=== PATIENT | female | born 1975 | race Caucasian/White ===

== ENCOUNTER 2016-08-18 11:41 | Emergency (ER) | payer OTHER ==
[~2016-08-18] VITALS: Ht 160 cm; Wt 90.9 kg
[~2016-08-18 11:41] MED LIST: GABA-502 PO; HYDR-3797 PO; HYDROMORPHONE HCL PO; MORP-32 PO; NAPR500T5 PO; ROB500 PO
[2016-08-18 11:44] VITALS: BP 139/89; PULSE 104; RESP 16; O2SAT 99
--- NOTE | 2016-08-18 12:43 | DRSVH ---
PROCEDURE: X-RAY PELVIS W/LAT HIP (RT) ([id number]) INDICATIONS: pain/ post surgical TECHNIQUE: AP pelvis with lateral view(s) of the right hip(s). COMPARISON: [facility], CR, XR HIP 2VW RT, 05/05/2016, 20:31. [facility], CR , XR FEMUR 2VW RT, 08/18/2016, 12:05. [facility], CR, XR PELVIS W LATERAL HIP RT, 02/15/20 16, 19:51. FINDINGS: Bones: Postsurgical changes compatible with ORIF of right femoral neck fracture are stable in appeara nce compared to prior examination. Soft tissues: The visualized bowel gas pattern is normal. No suspicious soft tissue calcifications. Multiple surgical clips project over the right lower quadrant loculated prior appendectomy. IMPRESSION: Status post ORIF of right femoral neck fracture. No acute fracture identified. Dictated by: Lissy Schilling MD, PhD on 08/18/2016 at 12:41 Approved by: Lissy Schilling MD, PhD on 08/18/2016 at 12:41
--- NOTE | 2016-08-18 12:48 | DRSVH ---
PROCEDURE: X-RAY RIGHT FEMUR, TWO VIEWS ([id number]) INDICATIONS: pain/ post surgical TECHNIQUE: 2 views of the femur were acquired. COMPARISON: [facility], CR, XR HIP 2VW RT, 05/05/2016, 20:31. FINDINGS: Bones: No acute fracture identified. Postoperative changes compatible with ORIF of right femoral neck fracture are noted. The most inferior orthopedic screw placed for reduction of right femoral neck fr acture has backed out and now projects approximately 2.1 cm lateral to the lateral margin of the prox imal right femur. Tricompartmental right knee osteoarthritic degenerative changes are noted. IMPRESSION: Status post ORIF of right femoral neck fracture. Most inferior of 3 orthopedic screws maribel mark for reduction of the right femur fracture has backed out and projects approximately 2.1 cm latera l to the lateral margin of the right femur. Dictated by: Lissy Schilling MD, PhD on 08/18/2016 at 12:47 Approved by: Lissy Schilling MD, PhD on 08/18/2016 at 12:47
[2016-08-18 12:57] LABS: BASOPHILS % (AUTO) 1.8 % (0-3); EOSINOPHILS % (AUTO) 6.5 % (0-5); MONOCYTES % (AUTO) 9.8 % (4-12); Mean Corpuscular Hemoglobin 30.7 pg (27.0-35.0); Mean Corpuscular Volume 92.1 fL (81-100); NEUTROPHILS % (AUTO) 39.5 % (40-74); Platelet Count 210 bil/L (150-400)
--- NOTE | 2016-08-18 15:16 | ED.REPORT ---
HPI-Extremity Problem Lower Date of Service Aug 18, 2016 ED Provider: Jonny Dhillon MD Pt is a 41 year old female post right hip surgery (04/17/16) complaining of right sided hip pain. She reports that in the last 4 days she's had increasing swelling and pain in her right hip radiating down her thigh. She also describes a sharp pain in her buttock. Associated symptoms include feeling flushed and a subjective fever. The pt takes Percocet, gabapentin and naproxen for pain. She last had pain medications around 1100 today. Nursing Notes Stated Complaint: HIP THIGH PAIN SWELLING Chief Complaint: Extremity Trauma Nursing Notes Reviewed: Yes Allergies: Coded Allergies: No Known Allergies (Unverified , 05/05/16) Scheduled ([hydromorphone hcl]) 25 MG PO BID Gabapentin (Gabapentin) 300 Mg Capsule 600 MG PO TID Morphine Sulfate ER (Morphine Sulfate ER) 15 Mg Tablet 15 MG PO Q12H Scheduled PRN Hydroxyzine Pamoate (HydrOXYzine Pamoate) 25 Mg Capsule 25 MG PO BID PRN PRN For Insomnia Methocarbamol (Methocarbamol) 500 Mg Tablet 750 MG PO Q6 PRN PRN For Pain Naproxen (Naproxen) 500 Mg Tablet.dr 500 MG PO BID PRN PRN For Pain General Time Seen by MD: 15:14 Chief Complaint Hip injury right Hx Obtained From: Patient Arrived By: Walk-in Onset Occurred: 4 days ago Symptom Duration: Since onset Location: : Hip right Quality: Painful, Sharp Severity: Current: Moderate Severity: Maximum: Severe Associated with: Reports: Fever (Subjective) Exacerbated by: Twisting Recent Healthcare: No recent doctor visit, No recent hospitalization, Previous surgery Similar Sx Previous: Yes Past Medical History Past Medical History Notes: No regular PCP Past Medical History Migraines, otherwise healthy. chronic pain issues PCOS Anxiety Heart murmur Past Surgical History surgery for labrum hip tear on 01/09/16 femoral repair 04/17/16 Multiple abdominal surgeries D&C x3 Multiple cystectomies Ablation Right arthroscopy and right bursectomy Reports: Hysterectomy Family History Colon polyps Crohn's disease Smoking History Former Smoker Social History The patient recently moved to the area 1 year ago. 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 Ambulatory Status Independent Review of Systems Constitutional: Reports: Fever Musculoskeletal: Reports: Joint pain (Right hip), Joint swelling (Right hip) Complete sys rev & neg: except as marked. Respiratory: Denies: Shortness of breath, Wheezing GI: Denies: Vomiting Physical Exam Initial Vital Signs Vital Signs (First) Date Time Temp Pulse Resp B/P Pulse Ox O2 Delivery O2 Flow Rate FiO2 08/18/16 11:44 36.7 104 16 139/89 99 Room Air Initial VS: Reviewed General/Constitutional: Well-developed, Well-nourished Head / Eyes: Atraumatic Neck: Supple, Non-tender, Full range of motion Respiratory: No respiratory distress Abdomen / GI: No distention Upper Extremities: Vascular intact, Neuro intact, No swelling, No tenderness Skin: Warm, Dry, No cyanosis Neurologic: Alert, Oriented, Nonfocal Psychiatric: Mood/affect normal, Behavior normal, Normal thought content Lower Extremity / Pelvis / MS: Neurologic intact, Vascular intact Right hip incision site healing well. Scar looks normal, no erythema or warmth. Interpretation & Diagnostics Lab Results Interpretation Result Diagram: 08/18/16 1233 08/18/16 1233 Test 08/18/16 12:33 White Blood Count 8.7th/mm3 (3.8-10.1) Red Blood Count 4.53mil/mm3 (3.90-5.20) Hemoglobin 13.9g/dL (12.0-15.6) Hematocrit 41.7% (35.0-46.0) Mean Corpuscular Volume 92.1fL (81-100) Mean Corpuscular Hemoglobin 30.7pg (27.0-35.0) Mean Corpuscular Hemoglobin Concent 33.3% (32.0-37.0) Red Cell Distribution Width 14.5% (12.3-15.4) Platelet Count 210bil/L (150-400) Neutrophils (%) (Auto) 39.5% (40-74) Lymphocytes (%) (Auto) 42.2% (14-46) Monocytes (%) (Auto) 9.8% (4-12) Eosinophils (%) (Auto) 6.5% (0-5) Basophils (%) (Auto) 1.8% (0-3) Sodium Level 136mEq/L (134-144) Potassium Level 4.1mEq/L (3.5-5.2) Chloride Level 98mEq/L (97-108) Carbon Dioxide Level 27mmol/L (18-29) Blood Urea Nitrogen 13mg/dL (6-24) Creatinine 0.87mg/dL (0.57-1.00) Estimat Glomerular Filtration Rate 103mL/min (>59) Glucose Level 102mg/dL (60-99) Calcium Level 9.4mg/dL (8.5-10.1) Total Bilirubin 0.3mg/dL (0.0-1.2) Aspartate Amino Transf (AST/SGOT) 15U/L (0-50) Alanine Aminotransferase (ALT/SGPT) 17U/L (0-32) Alkaline Phosphatase 70U/L (25-150) Total Protein 7.0g/dL (6.4-8.4) Albumin 4.1g/dL (3.4-5.0) Hold [place] Top Tube Received (Received) X-Ray Interpretation Xray Interpretation: XRAY PELVIS LAT RIGHT HIP: IMPRESSION: Status post ORIF of right femoral neck fracture. No acute fracture identified. Dictated by: Lissy Schilling MD, PhD on 08/18/2016 at 12:41 XRAY RIGHT FEMUR: IMPRESSION: Status post ORIF of right femoral neck fracture. Most inferior of 3 orthopedic screws placed for reduction of the right femur fracture has backed out and projects approximately 2.1 cm lateral to the lateral margin of the right femur. Dictated by: Lissy Schilling MD, PhD on 08/18/2016 at 12:47 Interpretation / Wet Read by: Interpret - Radiologist US Soft Tissue/Musculoskeletal US VEINOUS LEG RIGHT: IMPRESSION: No DVT down right leg. Dictated by: Rainer Julse M.D. on 08/18/2016 at 16:15 Exam Performed by: Radiologist Exam Interpreted by: Radiologist Indication: Swelling, Pain Re-Eval/Medical Decision Re-Evaluation/Progress #1: Time of Eval: 16:59 Patient Status: Condition improved Re-Evaluation/Progress Note: Performed physical exam and discussed x ray results. Re-Evaluation/Progress #2: Time of Eval: 17:17 Patient Status: Condition improved Re-Evaluation/Progress Note: Discussed plan for discharge. Pt understands and agrees. Counseled Regarding: Diagnosis, Lab results, Need for follow-up, When/why to return to ED Discharge & Departure Impression: Primary Impression: Right hip pain Disposition: Home Discharge Condition All VS Reviewed: Yes Condition: Improved Additional Instructions: Your ER visit today included interview, examination, X-rays, ultrasound, and labs. We have excluded infection or deep vein thrombosis as a cause for hip and thigh pain. On x-ray we note that the lowest screw from your recent surgery appears to have backed out slightly. Your orthopedist can review imaging on the electronic PACS system. Please contact him for follow up. Continue with use of crutches as needed, continue previous pain med management. Referrals: Corky Bernal MD Attestation Portions of this note were transcribed by Malia Lawrence. I, Dr. Dhillon personally performed the history, physical exam and medical decision-making; I reviewed and confirmed the accuracy of the information in the transcribed note. Signed by : Shiraz Tran, 08/18/16 and 7423. copies to: Corky Bernal MD, Donald L MD Aug 18, 2016 15:16 MALIA LAWRENCE Aug 18, 2016 15:28 Jonny Dhillon MD Aug 18, 2016 15:16 MALIA LAWRENCE Aug 18, 2016 15:28
[2016-08-18] MEDS ORDERED: oxyCODONE-Acetamin 5-325 mg Tablet PO ONE (15:25)
--- NOTE | 2016-08-18 16:16 | DRSVH ---
PROCEDURE: US VEINOUS LEG DUPLEX UNILATERAL, RIGHT INDICATIONS: R leg pain recent hip repair TECHNIQUE: Real-time imaging, as well as color and pulse Doppler interrogation, were performed of the lower extr emity deep veins from the inguinal ligament to the popliteal fossa. COMPARISON: [facility], US, US VENOUS LEG DPLX UNI RT, 06/10/2016, 14:40. FINDINGS: The deep veins are normally compressible, and free of intraluminal thrombus. Color and pu lse Doppler demonstrate normal phasic intraluminal flow. There is normal augmentation response to di stal compression maneuver. IMPRESSION: No DVT down right leg. Dictated by: Rainer Jules M.D. on 08/18/2016 at 16:15 Approved by: Rainer Jules M.D. on 08/18/2016 at 16:15
[2016-08-18] MEDS ORDERED: levETIRAcetam Inj 1,000 MG in IV Premix 1 EACH IV ONE (17:10)
[2016-08-18 17:30] VITALS: BP 149/86; PULSE 92; RESP 20; O2SAT 96
== END 2016-08-18 17:31 | disposition home or self-care (01) ==
LOC: SED 11:41
DX: M25.551 Pain in right hip (principal); Z98.890 Other specified postprocedural states; Z87.891 Personal history of nicotine dependence

== ENCOUNTER 2016-11-29 19:39 | Emergency (ER) | payer OTHER ==
[~2016-11-29] VITALS: Ht 160 cm; Wt 91.4 kg
[2016-11-29 19:41] VITALS: BP 138/78; PULSE 106; RESP 22; O2SAT 98
[2016-11-29 20:36] LABS: BASOPHILS % (AUTO) 1.3 % (0-3); EOSINOPHILS % (AUTO) 6.9 % (0-5); MONOCYTES % (AUTO) 12.9 % (4-12); Mean Corpuscular Hemoglobin 31.2 pg (27.0-35.0); Mean Corpuscular Volume 95.6 fL (81-100); NEUTROPHILS % (AUTO) 48.1 % (40-74); Platelet Count 298 bil/L (150-400)
[2016-11-29 20:58] LABS: Magnesium 2.1 mg/dL (1.6-2.6)
[2016-11-29 20:59] LABS: TROPONIN T < 0.010 ug/L (0.0-0.011)
--- NOTE | 2016-11-29 21:02 | DRSVH ---
PROCEDURE: X-RAY CHEST ONE VIEW, PORTABLE ([id number]) INDICATIONS: fever TECHNIQUE: One view of the chest was acquired. COMPARISON: None. FINDINGS: Surgical changes and devices: None. Lungs and pleura: No pleural effusions or pneumothorax. Lungs are clear. Mediastinum: Mediastinal contours appear normal. Heart size is normal. Bones and chest wall: No suspicious bony lesions. Overlying soft tissues appear unremarkable. IMPRESSION: No acute cardiopulmonary disease process. Dictated by: Lissy Schilling MD, PhD on 11/29/2016 at 21:00 Approved by: Lissy Schilling MD, PhD on 11/29/2016 at 21:00
[2016-11-29] MEDS ORDERED: 0.9% Sodium Chloride 1,000 ML IV ONE (21:15)
--- NOTE | 2016-11-29 21:20 | ED.REPORT ---
HPI-General Illness Date of Service Nov 29, 2016 ED Provider: Amisha Noel MD The patient is a 41 year old female who presents to the ED due to right knee swelling and pain following a complete right hip replacement four days ago. Dr. Darnell Hodgson was her surgeon. Post surgery, she now complains of increasing right knee and hip pain, extreme fatigue, flu-like symptoms, fever, nausea, chills, neck pain, swelling and bruising of the right knee. She had diarrhea prior to the surgery, which has since abated. She was hospitalized in the last year for c -diff. he denies cough, nausea, and dysuria. She also had emergency femur repair surgery 04/16/17. She has the help of a few in-home nurses to aid with her surgery recovery. Nursing Notes Stated Complaint: FEVER,NAUSEA,CHILLS,PAIN 4 DAYS POST ARTROPLASTY Chief Complaint: General Complaint Nursing Notes Reviewed: Yes Allergies: Coded Allergies: No Known Allergies (Unverified , 11/29/16) Scheduled Aspirin (Aspirin) 81 Mg Tablet 81 MG PO DAILY Morphine Sulfate ER (Morphine Sulfate ER) 15 Mg Tablet 15 MG PO BID Scheduled PRN Hydromorphone (Hydromorphone) 2 Mg Tablet 2-4 MG PO Q3H PRN PRN Pain Hydroxyzine Pamoate (HydrOXYzine Pamoate) 25 Mg Capsule 25 MG PO Q6 PRN PRN For Itching Ondansetron ODT (Zofran ODT) 4 Mg Tablet 4 MG PO Q4H PRN PRN For Nausea Polyethylene Glycol 3350 (Miralax) 17 Gm Powd.pack 17 GM PO DAILY PRN PRN For Constipation General Time Seen by MD: 20:34 Chief Complaint Other (right knee swelling and pain) Hx Obtained From: Patient Arrived By: Walk-in Past Medical History Past Medical History Notes: No regular PCP Past Medical History Migraines, otherwise healthy. chronic pain issues PCOS Anxiety Heart murmur Past Surgical History surgery for labrum hip tear on 01/09/16 femoral repair 04/17/16 Multiple abdominal surgeries D&C x3 Multiple cystectomies Ablation Right arthroscopy and right bursectomy Reports: Hysterectomy Family History Colon polyps Crohn's disease Smoking History Former Smoker Social History The patient recently moved to the area 1 year ago. 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 Ambulatory Status Independent Review of Systems Full Review of Systems Constitutional: Reports: Chills, Fatigue, Fever Respiratory: Denies: Non-productive cough GI: Reports: Diarrhea, Nausea Female: Denies: Dysuria Musculoskeletal: Reports: Extremity pain, Extremity swelling Complete sys rev & neg: except as marked. Physical Exam Vital Signs Vital Signs Date Time Temp Pulse Resp B/P Pulse Ox O2 Delivery O2 Flow Rate FiO2 11/29/16 22:43 37.2 99 16 124/63 96 Room Air 11/29/16 19:41 38.0 106 22 138/78 98 Room Air Initial VS: Reviewed, Vital signs abnormal Head / Eyes: Atraumatic, Normocephalic, PERRL ENT: Mucous membranes moist Respiratory: Breath sounds normal, Clear to auscultation, No respiratory distress Abdomen / GI: Soft, Non-tender, No guarding, No rebound, No distention Skin: Warm, Dry Neurologic: Alert, Oriented General/Constitutional: Awake, Alert, Cooperative Cardiovascular: Regular rhythm, Heart sounds NL Heart Rate / Rhythm: Positive: Tachycardia Right Knee: Positive: Swelling present... right leg is swollen and bruised incision clean, dry, and intact no surrounding erythema Interpretation & Diagnostics Lab Results Interpretation Result Diagram: 11/29/16201411/29/16 2015 Test 11/29/16 20:15 11/29/16 20:50 White Blood Count 9.1th/mm3 (3.8-10.1) Red Blood Count 3.21mil/mm3 (3.90-5.20) Hemoglobin 10.0g/dL (12.0-15.6) Hematocrit 30.7% (35.0-46.0) Mean Corpuscular Volume 95.6fL (81-100) Mean Corpuscular Hemoglobin 31.2pg (27.0-35.0) Mean Corpuscular Hemoglobin Concent 32.6% (32.0-37.0) Red Cell Distribution Width 13.6% (12.3-15.4) Platelet Count 298bil/L (150-400) Neutrophils (%) (Auto) 48.1% (40-74) Lymphocytes (%) (Auto) 30.2% (14-46) Monocytes (%) (Auto) 12.9% (4-12) Eosinophils (%) (Auto) 6.9% (0-5) Basophils (%) (Auto) 1.3% (0-3) Erythrocyte Sedimentation Rate 52mm/hr (0-32) Sodium Level 133mEq/L (134-144) Potassium Level 4.5mEq/L (3.5-5.2) Chloride Level 96mEq/L (97-108) Carbon Dioxide Level 25mmol/L (18-29) Blood Urea Nitrogen 11mg/dL (6-24) Creatinine 0.75mg/dL (0.57-1.00) Estimat Glomerular Filtration Rate 123mL/min (>59) Glucose Level 115mg/dL (60-99) Lactic Acid Level 1.0mmol/L (0.4-2.0) Calcium Level 9.8mg/dL (8.5-10.1) Magnesium Level 2.1mg/dL (1.6-2.6) Total Bilirubin 0.7mg/dL (0.0-1.2) Aspartate Amino Transf (AST/SGOT) 30U/L (0-50) Alanine Aminotransferase (ALT/SGPT) 18U/L (0-32) Alkaline Phosphatase 59U/L (25-150) Troponin T < 0.010ug/L (0.0-0.011) C-Reactive Protein 12.1mg/dL (0.0-0.5) Total Protein 6.8g/dL (6.4-8.4) Albumin 3.9g/dL (3.4-5.0) Urine Color Yellow (YELLOW) Urine Appearance Clear (CLEAR,HAZY) Urine pH 6.0 (5.0-8.0) Urine Specific [place] 1.020 (1.003-1.035) Urine Protein Negativemg/dL (NEG,TRACE) Urine Glucose (UA) Negativemg/dL (NEGATIVE) Urine Ketones Negativemg/dL (NEGATIVE) Urine Occult Blood Moderate (NEGATIVE) Urine Nitrite Negative (NEGATIVE) Urine Bilirubin Negative (NEGATIVE) Urine Urobilinogen Normalmg/dL (NORMAL) Urine Leukocyte Esterase Negative (NEGATIVE) Urine RBC 3-10/hpf (0-2) Urine WBC 0-5/hpf (0-5) Urine Epithelial Cells Few/hpf (NONE-MOD) Urine Crystals None seen (NONE SEEN) Urine Bacteria Few/hpf (NONE-FEW) Urine Hyaline Casts None/lpf (NONE) Urine Granular Casts None seen (NONE SEEN) Urine Waxy Casts None seen (NONE SEEN) Urine Red Blood Cell Casts None seen (NONE SEEN) Urine White Blood Cell Casts None seen (NONE SEEN) Urine Mucus None seen (None Seen) Urine Trichomonas None seen (NONE SEEN) Urine Yeast None (NONE SEEN) Urinalysis Comment None Urine Culture Reflexed Not indicated X-Ray Chest Interpretation Chest Xray Interpretation: IMPRESSION: No acute cardiopulmonary disease process. Dictated by: Lissy Schilling MD, PhD on 11/29/2016 at 21:00 Approved by: Lissy Schilling MD, PhD on 11/29/2016 at 21:00 View: Portable Interpretation / Wet Read by: Interpret - Radiologist Re-Eval/Medical Decision Med Decision/Clinical Course Patient presents 5 days after surgery with fever and general malaise. She is also concerned about swelling and bruising to her right leg after hip replacement. Her bruising appears within normal limits. David patient's fever she was checked for pneumonia and a urinary tract infection. There is no sign of cellulitis at the incision site. In speaking with the on-call orthopedist, its too early to have infection of her hardware. The patient was reassured and sent home. Includes the cause of her fever but it may be related to her surgery, she does have a lot of bruising to her right thigh.. Consultation : Call Returned at: 22:04 Vehicle Dismantler: Agrees with eval, Agrees with plan Note: Case discussed with Dr. Grande. It would be quite early for a hardware infection. Plan for pt to call Dr. Grande's office tomorrow. Counseled Regarding: Diagnosis, Lab results, Need for follow-up, When/why to return to ED Discharge & Departure Primary Impression: Fever Fever type: post-procedural Qualified Code: R50.82 - Postprocedural fever Disposition: Home Discharge Condition All VS Reviewed: Yes Condition: Stable Additional Instructions: It is unclear to the cause of your fever. I spoke with Dr. Grande and he said that it would be very early for any kind of hardware infection. Call Dr. Grande' s office tomorrow and schedule an appointment. You do not have any sign of pneumonia, urinary tract infection, or skin infection. Return to the Emergency Department for any new or worsening symptoms such as increasing fever. Referrals: TODD (PCP) Radha Attestation Portion of this note were transcribed by Grazyna Clinton. I, Dr. Noel, personally performed the history, physical exam, and medical decision-making: I reviewed and confirmed the accuracy for the information in the transcribed note. Signed by: radha Manning, 11/29/16 2300 copies to: Amisha Macedo MD Nov 29, 2016 21:20 Grazyna Clinton Nov 29, 2016 21:23
[2016-11-29 21:26] LABS: APPEARANCE,URINE CLEAR (CLEAR,HAZY); COLOR,URINE YELLOW (YELLOW)
[2016-11-29 21:27] LABS: OCCULT BLOOD,URINE MODERATE (NEGATIVE); UROBILINOGEN,URINE NORMAL (NORMAL)
[2016-11-29] MEDS ORDERED: Morphine ER 15 mg (MS Contin) Tablet PO ONE (21:40)
[2016-11-29] MEDS ORDERED: HYDROmorphone 1 mg/mL Inj IVPUSH ONE (21:40)
[2016-11-29] MEDS ORDERED: ONDA4TAB9 PO (22:10)
[2016-11-29] MEDS ORDERED: HYDR-3797 PO (22:10)
[2016-11-29] MEDS ORDERED: HYDR2TAB28 PO (22:10)
[2016-11-29] MEDS ORDERED: POLY17PO6 PO (22:10)
[2016-11-29] MEDS ORDERED: MORP-32 PO (22:10)
[2016-11-29] MEDS ORDERED: ASPI-973 PO (22:10)
[2016-11-29 22:43] VITALS: BP 124/63; PULSE 99; RESP 16; O2SAT 96
== END 2016-11-29 22:44 | disposition home or self-care (01) ==
LOC: SED 19:39
DX: R50.82 Postprocedural fever (principal); M79.89 Other specified soft tissue disorders; M25.469 Effusion, unspecified knee; M25.561 Pain in right knee; M25.551 Pain in right hip; G89.18 Other acute postprocedural pain; R53.83 Other fatigue; R11.0 Nausea; M54.2 Cervicalgia; Z96.641 Presence of right artificial hip joint; Z87.891 Personal history of nicotine dependence; Z79.82 Long term (current) use of aspirin; Z98.890 Other specified postprocedural states
CPT/HCPCS: 36415; 71010; 80053; 81000; 81025; 83605; 83735; 84484; 85025; 85651; 86140; 87040; 96361; 96374; 99285; J1170; J7030

== ENCOUNTER 2016-12-01 16:51 | Emergency (ER) | payer OTHER ==
[~2016-12-01] VITALS: Ht 160 cm; Wt 91.8 kg
[2016-12-01] VITALS (7 sets, daily range): BP systolic 118–164; BP diastolic 37–82; PULSE 86–122; RESP 19–34; O2SAT 95–100
[~2016-12-01 16:51] MED LIST changes: +ASPI-973 PO; -GABA-502 PO; +HYDR2TAB28 PO; -HYDROMORPHONE HCL PO; -NAPR500T5 PO; +ONDA4TAB9 PO; +POLY17PO6 PO; -ROB500 PO
--- NOTE | 2016-12-01 16:56 | ED.REPORT ---
HPI-Syncope Date of Service Dec 01, 2016 ED Provider: Dr. Dhillon Patient is a 41 y/o female on aspirin with a history of anxiety and total right hip replacement who presents to the ED complaining of possible syncope. The patient had her hip replacement last week and was seen in the ED two days ago due to possible infection of the hip. She was feeling unwell this morning but went to the store with her . She became diaphoretic and began "seeing stars," at which point she collapsed on her left side. The next thing she remembers is being lifted up by her . The patient does not believe that she fell very hard and denies shortness of breath. She has been taking her pain medications as prescribed. Nursing Notes Stated Complaint: PAIN IN HIP Nursing Notes Reviewed: Yes Allergies: Coded Allergies: No Known Allergies (Unverified , 11/29/16) Scheduled Aspirin (Aspirin) 81 Mg Tablet 81 MG PO DAILY Morphine Sulfate ER (Morphine Sulfate ER) 15 Mg Tablet 15 MG PO BID Scheduled PRN Hydromorphone (Hydromorphone) 2 Mg Tablet 2-4 MG PO Q3H PRN PRN Pain Hydroxyzine Pamoate (HydrOXYzine Pamoate) 25 Mg Capsule 25 MG PO Q6 PRN PRN For Itching Ondansetron ODT (Zofran ODT) 4 Mg Tablet 4 MG PO Q4H PRN PRN For Nausea Polyethylene Glycol 3350 (Miralax) 17 Gm Powd.pack 17 GM PO DAILY PRN PRN For Constipation General Time Seen by Provider: 18:00 Chief Complaint Other (Possible syncope) Hx Obtained From: Patient Arrived By: Walk-in Onset Occurred: Just prior to arrival Associated with: Reports: Dizziness, Lightheaded Relieved by: Prescription meds Recent Healthcare: Recent doctor visit, Previous surgery Similar Sx Previous: No Past Medical History Past Medical History Notes: No regular PCP Past Medical History Migraines, otherwise healthy. chronic pain issues PCOS Anxiety Heart murmur Past Surgical History surgery for labrum hip tear on 01/09/16 femoral repair 04/17/16 Multiple abdominal surgeries D&C x3 Multiple cystectomies Ablation Right arthroscopy and right bursectomy total right hip replacement Reports: Hysterectomy Family History Colon polyps Crohn's disease Smoking History Former Smoker Social History The patient recently moved to the area 1 year ago. 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 Ambulatory Status Independent Review of Systems Respiratory: Denies: Shortness of breath Cardiovascular: Denies: Chest pain GI: Denies: Abdominal pain Musculoskeletal: Reports: Extremity pain Skin: Reports Diaphoresis Neurologic: Reports: Lightheaded, Syncope Complete sys rev & neg: except as marked. Physical Exam Physical Exam Notes: anxious and hyperventilating on arrival. Initial Vital Signs Vital Signs (First) Date Time Temp Pulse Resp B/P Pulse Ox O2 Delivery O2 Flow Rate FiO2 12/01/16 16:57 36.7 122 34 145/72 100 Room Air Initial VS: Reviewed Head / Eyes: Atraumatic, Normocephalic Skin: Warm, Dry, No cyanosis General/Constitutional: Awake, Alert Respiratory / Chest: Breath sounds NL, Breath sounds = bilat, No respiratory distress Cardiovascular: Heart rate NL, Regular rhythm Lower Extremity / Pelvis / MS: Neurologic intact, Vascular intact Good active and passive range of motion of the left hip. Neurologic: Oriented X3, Speech NL ENT: Atraumatic, Airway patent, Mucous membranes moist Neck: Atraumatic, Supple, Full range of motion Abdomen: Atraumatic, Soft, Non-tender Back: Atraumatic, Full range of motion Psychiatric: Affect NL, Mood NL Upper Extremity / MS: Atraumatic, Full range of motion Interpretation & Diagnostics Lab Results Interpretation Result Diagram: 12/01/16 1702 12/01/16 1702 Test 12/01/16 17:02 White Blood Count 12.5th/mm3 (3.8-10.1) Red Blood Count 3.38mil/mm3 (3.90-5.20) Hemoglobin 10.3g/dL (12.0-15.6) Hematocrit 32.0% (35.0-46.0) Mean Corpuscular Volume 94.7fL (81-100) Mean Corpuscular Hemoglobin 30.5pg (27.0-35.0) Mean Corpuscular Hemoglobin Concent 32.2% (32.0-37.0) Red Cell Distribution Width 13.6% (12.3-15.4) Platelet Count 444bil/L (150-400) Neutrophils (%) (Auto) 42.1% (40-74) Lymphocytes (%) (Auto) 38.3% (14-46) Monocytes (%) (Auto) 11.1% (4-12) Eosinophils (%) (Auto) 6.5% (0-5) Basophils (%) (Auto) 1.4% (0-3) Hold Purple Top Tube Received (Received) Hold Blue Top Tube Received (Received) Sodium Level 135mEq/L (134-144) Potassium Level 4.3mEq/L (3.5-5.2) Chloride Level 95mEq/L (97-108) Carbon Dioxide Level 22mmol/L (18-29) Blood Urea Nitrogen 8mg/dL (6-24) Creatinine 0.71mg/dL (0.57-1.00) Estimat Glomerular Filtration Rate 131mL/min (>59) Glucose Level 129mg/dL (60-99) Calcium Level 9.7mg/dL (8.5-10.1) Total Bilirubin 0.8mg/dL (0.0-1.2) Aspartate Amino Transf (AST/SGOT) 24U/L (0-50) Alanine Aminotransferase (ALT/SGPT) 16U/L (0-32) Alkaline Phosphatase 55U/L (25-150) Total Protein 7.3g/dL (6.4-8.4) Albumin 4.2g/dL (3.4-5.0) Hold Red Top Tube Received (Received) Hold Doole Top Tube Received (Received) Hold Mayorga Top Tube Received (Received) ECG Interpretation ECG Interpretation: Sinus Rhythm Borderline ST depression, anterolateral leads Time: 18:08 Interpreted by: ED physician Abnormal Rate: Rate (86) CT Chest Interpretation IMPRESSION: 1. No acute process. No pulmonary embolus. 2. 3 mm diameter right lung nodule; followup is recommended as below Dictated by: Uriel Marin M.D. on 12/01/2016 at 20:30 Approved by: Uriel Marin M.D. on 12/01/2016 at 20:33 Study type: CT pulm angiogram Interpretation / Wet Read by: Interpret - Radiologist Re-Eval/Medical Decision Source of Hx: Old records Re-Evaluation/Progress : Time of Eval: 23:00 Patient Status: Condition improved Re-Evaluation/Progress Note: Patient is informed of results and plan for discharge. She understands and agrees with the plan, all questions answered at this time. Counseled Regarding: Diagnosis, Lab results, Need for follow-up, When/why to return to ED Discharge & Departure Impression: Primary Impression: Syncope Syncope type: unspecified Qualified Code: R55 - Syncope and collapse Disposition: Home Discharge Condition All VS Reviewed: Yes Condition: Stable Additional Instructions: Emergency Department evaluation included interview, examination labs ECG CT chest and review of past records. No serious cause for an episode of syncope ( faint) was identified. Continue previous home care and if feeling faint, sit down as soon as possible, return to activity gradually as you have had a major surgery. Follow-up with your orthopedist as scheduled. Follow-up with primary care if episodes of feeling faint persist. Return emergency Department for fevers shaking chills shortness of breath recurrent episodes of fainting or chest pain. Referrals: [facility] Scribe Attestation Portions of this note were transcribed by Barry Alexander and Eric Vargas. I, Dr. Dhillon personally performed the history, physical exam and medical decision- making; I reviewed and confirmed the accuracy of the information in the transcribed note. Signed by: Barry Alexander and Eric Vargas, [place], 2016 and 3330. copies to: [facility] Full Interpretation & Diagnost Lab Results Interpretation Result Diagram: 12/01/16 1702 12/01/16 1702 Test 12/01/16 17:02 White Blood Count 12.5th/mm3 (3.8-10.1) Red Blood Count 3.38mil/mm3 (3.90-5.20) Hemoglobin 10.3g/dL (12.0-15.6) Hematocrit 32.0% (35.0-46.0) Mean Corpuscular Volume 94.7fL (81-100) Mean Corpuscular Hemoglobin 30.5pg (27.0-35.0) Mean Corpuscular Hemoglobin Concent 32.2% (32.0-37.0) Red Cell Distribution Width 13.6% (12.3-15.4) Platelet Count 444bil/L (150-400) Neutrophils (%) (Auto) 42.1% (40-74) Lymphocytes (%) (Auto) 38.3% (14-46) Monocytes (%) (Auto) 11.1% (4-12) Eosinophils (%) (Auto) 6.5% (0-5) Basophils (%) (Auto) 1.4% (0-3) Hold Purple Top Tube Received (Received) Hold Blue Top Tube Received (Received) Sodium Level 135mEq/L (134-144) Potassium Level 4.3mEq/L (3.5-5.2) Chloride Level 95mEq/L (97-108) Carbon Dioxide Level 22mmol/L (18-29) Blood Urea Nitrogen 8mg/dL (6-24) Creatinine 0.71mg/dL (0.57-1.00) Estimat Glomerular Filtration Rate 131mL/min (>59) Glucose Level 129mg/dL (60-99) Calcium Level 9.7mg/dL (8.5-10.1) Total Bilirubin 0.8mg/dL (0.0-1.2) Aspartate Amino Transf (AST/SGOT) 24U/L (0-50) Alanine Aminotransferase (ALT/SGPT) 16U/L (0-32) Alkaline Phosphatase 55U/L (25-150) Total Protein 7.3g/dL (6.4-8.4) Albumin 4.2g/dL (3.4-5.0) Hold Red Top Tube Received (Received) Hold Doole Top Tube Received (Received) Hold Mayorga Top Tube Received (Received) Jonny Dhillon MD Dec 01, 2016 16:56 Barry Alexander Dec 01, 2016 18:29 ERIC VARGAS Dec 01, 2016 23:39
[2016-12-01 17:46] LABS: BASOPHILS % (AUTO) 1.4 % (0-3); EOSINOPHILS % (AUTO) 6.5 % (0-5); MONOCYTES % (AUTO) 11.1 % (4-12); Mean Corpuscular Hemoglobin 30.5 pg (27.0-35.0); Mean Corpuscular Volume 94.7 fL (81-100); NEUTROPHILS % (AUTO) 42.1 % (40-74); Platelet Count 444 bil/L (150-400)
[2016-12-01] MEDS ORDERED: 0.9% Sodium Chloride 1,000 ML IV ONE (18:40)
--- NOTE | 2016-12-01 20:34 | DRSVH ---
PROCEDURE: CT ANGIO CHEST PULMONARY EMBOLISM ([id number]) INDICATIONS: syncope post R hip replacement TECHNIQUE: After the administration of intravenous contrast, 2 mm thick sections acquired from the pulmonary api francisco to the posterior costophrenic angles. 3-dimensional maximum intensity projection (MIP) coronal a nd sagittal reformats were then acquired through the thorax. For radiation dose reduction, the follo wing was used: automated exposure control, adjustment of mA and/or kV according to patient size. COMPARISON: None. FINDINGS: Image quality: Excellent. Pulmonary arteries: Pulmonary arteries are normal in size, and demonstrate no intraluminal filling d efects to suggest central pulmonary embolism. Lungs and pleura: No evidence of pneumonia, nor edema. 3 mm diameter nodule within the right midlung. No pleural effusions or pneumothorax. Central and peripheral airways are patent. Mediastinum: Heart size is normal, without pericardial effusion. No mediastinal or hilar adenopathy . Thoracic aorta is normal in caliber and enhancement. Esophagus is normal in caliber, without hiat al hernia. Bones and chest wall: No suspicious bony lesions. Ribs and thoracic spine appear intact throughout. Thyroid gland is within normal limits as visualized. No axillary or supraclavicular adenopathy. Abdomen: Visualized upper abdominal solid organs appear normal in the early arterial phase of enhanc ement. IMPRESSION: 1. No acute process. No pulmonary embolus. 2. 3 mm diameter right lung nodule; followup is recommended as below. Fleischner Society criteria for SOLID lung nodule followup. Nodule size (mm)Low-risk patientHigh-risk [id number] follow-up neededFollow-up at 12 mo; if no henderson e, no further follow-up>[id number] CT at 12 mo; if no change, no further follow-up needed.Initial f ollow-up CT at 6-12 mo, then 18-24 mo if no change. >6-8Initial follow-up CT at 6-12 mo, then 18-24 mo if no change. Initial follow-up CT at 3-6 mo, then 9-12 mo and 24 mo if no change. >8Follow-up CT at 3, 9, 24 mo. Or PET and/or biopsy.Same as for low-risk pts. Dictated by: Uriel Marin M.D. on 12/01/2016 at 20:30 Approved by: Uriel Marin M.D. on 12/01/2016 at 20:33
[2016-12-01] MEDS ORDERED: Morphine ER 100 mg (MS Contin) Tablet PO ONE (23:15)
[2016-12-01] MEDS ORDERED: Morphine ER 15 mg (MS Contin) Tablet PO ONE (23:30)
== END 2016-12-01 23:52 | disposition home or self-care (01) ==
LOC: SED 16:51
DX: R55 Syncope and collapse (principal); Z98.890 Other specified postprocedural states; Z87.891 Personal history of nicotine dependence; Z79.82 Long term (current) use of aspirin
CPT/HCPCS: 36415; 71275; 80053; 85025; 93005; 99285; J7030; Q9967

== ENCOUNTER 2017-01-28 14:32 | Emergency (ER) | payer OTHER ==
[~2017-01-28] VITALS: Ht 160 cm; Wt 87.7 kg
[2017-01-28 14:36] VITALS: BP 140/100; PULSE 108; RESP 16; O2SAT 99
--- NOTE | 2017-01-28 15:05 | ED.REPORT ---
HPI-Psychiatric Illness Date of Service Jan 28, 2017 ED Provider: Connie Beck MD Patient is a 41 year old female who presents to the ED complaining of depression that has gradually worsened over the last few weeks. She has a fall at work that injured her shoulder, R hip, and elbow in October of 2014. Her treatment involved complications with delayed diagnosis and treatment by her doctors and was labeled as a pain seeker which caused her to lose hope in the system. She had increasing pain in July after an emergency surgery for a femur fracture in April but was told by her doctor that she was fine. When she came to the ED, she was told the screws from her surgery were backing out. She is now being told by [employer] that the screws coming out were the surgeon's fault and a total hip replacement would not be covered by L&[employer]. After fighting back and getting the surgery covered, she has been confined to her home without access to physical therapy and in significant pain. She feels like her doctors are not advocating for her and she is frustrated that [employer] continues to avoid liability. She endorses passive suicidal ideation but states "I have too much to live for, I don't want to go down that route". She denies hallucination, homicidal ideation, or any other symptoms. She has been trying to get anti-depressants for a year and a half. She has also been trying to taper off her pain medication. She takes 3-4 percoset5-325's and was on 10-12 at her peak. Patient is new in [facility] and recently established a PCP. She has an appointment with her PCP next week. She has a supportive fiance at home. Nursing Notes Stated Complaint: DEPRESSION, ANXIETY Chief Complaint: Psychiatric Complaint Nursing Notes Reviewed: Yes Allergies: Coded Allergies: No Known Allergies (Unverified , 01/28/17) Scheduled Aspirin (Aspirin) 81 Mg Tablet 81 MG PO DAILY Duloxetine (Cymbalta) 60 Mg Capsule.dr 60 MG PO DAILY Morphine Sulfate ER (Morphine Sulfate ER) 15 Mg Tablet 15 MG PO BID Scheduled PRN Hydromorphone (Hydromorphone) 2 Mg Tablet 2-4 MG PO Q3H PRN PRN Pain Hydroxyzine Pamoate (HydrOXYzine Pamoate) 25 Mg Capsule 25 MG PO Q6 PRN PRN For Itching Lorazepam (Lorazepam) 0.5 Mg Tablet 0.5 MG PO BID PRN PRN For Anxiety Ondansetron ODT (Zofran ODT) 4 Mg Tablet 4 MG PO Q4H PRN PRN For Nausea Polyethylene Glycol 3350 (Miralax) 17 Gm Powd.pack 17 GM PO DAILY PRN PRN For Constipation General Time Seen by MD: 15:03 Chief Complaint Depressed Hx Obtained From: Patient Arrived By: Walk-in Onset Occurred: More than a week ago... Progression Since Onset: Gradually worsening Risk-Psychiatric Illness Suicide Risk Stratification Suicide Risk Factors - Adult: No: Alcohol use, Previous attempt, Prior psych admission, Substance abuse RF Statements: Risk factors reviewed Past Medical History Past Medical History Notes: Recently esablished PCP - Ilsa Hwang Past Medical History Migraines, otherwise healthy. chronic pain issues PCOS Anxiety Heart murmur Past Surgical History surgery for labrum hip tear on 01/09/16 femoral repair 04/17/16 Multiple abdominal surgeries D&C x3 Multiple cystectomies Ablation Right arthroscopy and right bursectomy total right hip replacement Reports: Hysterectomy Family History Colon polyps Crohn's disease Smoking History Former Smoker Social History The patient recently moved to the area 1 year ago. 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 Ambulatory Status Cane Review of Systems Review of Systems Note: Review of systems is positive for significant constitutional signs for depression including increasing anxiety increasing pain level, poor sleep, weight loss, increasing irritability, poor focus and concentration. She has had passive suicidal ideation but is not actively suicidal and has no plan. Feels she has good social support at home. Psychiatric: Reports: Depression, Suicidal ideation (passive ), Denies: Hallucinations, auditory, Hallucinations, visual, Homicidal ideation Complete sys rev & neg: except as marked. Physical Exam Initial Vital Signs Vital Signs (First) Date Time Temp Pulse Resp B/P Pulse Ox O2 Delivery O2 Flow Rate FiO2 01/28/17 14:36 37.0 108 16 140/100 99 Room Air Initial VS: Reviewed Head / Eyes: Atraumatic, Normocephalic Neck: Full range of motion Respiratory: No respiratory distress Abdomen / GI: Soft, Non-tender Skin: Warm, Dry General/Constitutional: Awake, Alert, Well developed Neurologic: Oriented X3, Speech NL Gait Abnormality: Positive: Antalgic gait Abnormal Mood/Affect: Positive: Anxious Tearful but focused. No tangential thinking. Able to concentrate. Right Hip: Positive: Tenderness present... Walks with a cane Re-Eval/Medical Decision Re-Evaluation/Progress : Time of Eval: 16:03 )( Re-Eval Psychiatric: No danger to self, No danger to others Re-Evaluation/Progress Note: Discussed plan for treatment, discharge, and close follow up. Patient understands and agrees with plan. All questions addressed at this time. Consultation : Referral / Consult Name: Ilsa Hwang ND Call Returned at: 16:06 Note: Attempted to contact pt's PCP to inform her of treatment plan and plan for follow up. Left a message for PCP and she will be informed that new medication was started today. Counseled Regarding: Diagnosis, Need for follow-up, When/why to return to ED Discharge & Departure Impression: Primary Impression: Anxiety Additional Impression: Depression Depression Type: unspecified Qualified Code: F32.9 - Major depressive disorder, single episode, unspecified )( Condition at Discharge: No danger to self, No danger to others, No homicidal ideation Disposition: Home Discharge Condition All VS Reviewed: Yes Condition: Stable Thank you for coming in to the ER today. It is so frightening to be at the end of your rope and feel that there is no help. I am going to suggest that you start and antidepressant called CYMBALTA. Not only is it effective for depression, but also for anxiety and chronic pain as well. You will not see benefits immediatly, it takes some time for your brain chemistry to adjust, so hang in there. I've left a message with Dr Hwang's office to let her know we are starting this medication in the ER and that you will need her to discuss this with your apt next wednesday and follow this for you. As a tempory measure and a bridge to the cymbalta working, I am going to suggest lorazepam .5mg up to 2x/day for acute anxiety. You may find that it helps you sleep as well. Benzodiazepines do not mix well with narcoitcs. Please make sure you are not taking more than 4 percoset in any given 24hour period if you are also taking the lorazepam. If you feel that you are getting worse, please return to the ER. I wish you the best! [facility] [place]. Referrals: Ilsa Hwang ND [employer] Attestation Portions of this note were transcribed by Beatriz Roa. I, Dr. Beck personally performed the history, physical exam and medical decision-making; I reviewed and confirmed the accuracy of the information in the transcribed note. Signed by: Beatriz Roa 01/28/17, 1620 copies to: Ilsa Hwang ND, Shawna L MD Jan 28, 2017 15:05 BEATRIZ ROA Jan 28, 2017 15:42
[2017-01-28] MEDS ORDERED: LORazepam 1 mg Tablet PO ONE (16:05)
[2017-01-28] MEDS ORDERED: LORA0.5T PO (16:10)
[2017-01-28] MEDS ORDERED: DULO60CA42 PO (16:10)
[2017-01-28 16:29] VITALS: BP 126/67; PULSE 69; O2SAT 100
== END 2017-01-28 16:32 | disposition home or self-care (01) ==
LOC: SED 14:32
DX: F41.8 Other specified anxiety disorders (principal); Z96.641 Presence of right artificial hip joint; Z79.82 Long term (current) use of aspirin; Z87.891 Personal history of nicotine dependence